=== PATIENT | female | born 1930 | race Caucasian/White ===

== ENCOUNTER 2016-06-30 20:44 | Emergency (ER) | payer MEDICARE, OTHER ==
[2016-06-30 22:55] LABS: BASOPHIL 0.6 % (0-2); EOSINOPHIL 7.2 % (0-7); HGB 12.1 g/dl (12.5-16.0); LYMPHOCYTE 14.3 % (15-48); MCH 32.3 pg (25.0-31.0); MCHC 33.6 g/dL (32.0-36.0); MONOCYTE 10.9 % (0-12); MPV 9.6 fL (6.0-9.5); PLT 279 K/uL (150-400); RBC 3.75 M/uL (4.20-5.40); RDW 12.5 % (11.5-14.0); WBC 10.5 K/uL (4.0-10.5)
[2016-06-30 23:13] LABS: ALBUMIN 4.2 g/dL (3.4-4.8); BILIRUBIN - TOTAL 0.3 mg/dL (0.1-1.0); CREATININE 1.6 mg/dL (0.5-1.0); GLOBULIN (CALCULATION) 2.7 g/dL (2.2-4.2); POTASSIUM 5.2 mmol/L (3.5-5.1); TOTAL PROTEIN 6.9 g/dL (6.4-8.3)
[2016-06-30 23:58] LABS: BILIRUBIN NEGATIVE (NEGATIVE); BLOOD 1+ Ery/uL (NEGATIVE); CLARITY CLEAR (CLEAR); COLOR YELLOW (YELLOW); GLUCOSE (U) NORMAL (NORMAL); KETONE (U) NEGATIVE (NEGATIVE); LEUKOCYTES TRACE Leu/uL (NEGATIVE); NITRITE NEGATIVE (NEGATIVE); PROTEIN NEGATIVE (NEGATIVE); UROBILINOGEN 0.2 mg/dL (0.2-1.0); pH 5.5 (5.0-9.0)
== END 2016-07-01 00:45 | disposition home or self-care (01) ==
LOC: FER 20:44
PROVIDERS: Emergency Medicine Emergency Medical Services
DX: G89.4 Chronic pain syndrome (principal); R26.2 Difficulty in walking, not elsewhere classified; R82.90 Unspecified abnormal findings in urine; I10 Essential (primary) hypertension; E03.9 Hypothyroidism, unspecified; M81.0 Age-related osteoporosis without current pathological fracture; Z79.891 Long term (current) use of opiate analgesic; Z79.51 Long term (current) use of inhaled steroids; Z79.899 Other long term (current) drug therapy; Z99.81 Dependence on supplemental oxygen
CPT/HCPCS: 36415; 70450; 71010; 72100; 72170; 73552; 73630; 80053; 81001; 85025; 85651; 86140; 87088; 87804; 87899; 93005; J1100